=== PATIENT | female | born 1985 | race Caucasian/White ===

== ENCOUNTER 2022-12-06 23:50 | Emergency (ER) | payer MEDICAID ==
[~2022-12-06] VITALS: Ht 152.4 cm; Wt 59.0 kg
[2022-12-07 01:15] VITALS: O2SAT 98
[2022-12-07] MEDS ORDERED: HYDROCODONE/ACETAMINOPHEN 5/325MG TABLET PO STA (02:47)
[2022-12-07 03:45] VITALS: BP 101/69
[2022-12-07] MEDS ORDERED: IBUP-2029 MT (05:40)
[2022-12-07 07:23] VITALS: PULSE 74; RESP 14; TEMP 98
== END 2022-12-07 07:24 | disposition home or self-care (01) ==
LOC: ER 12-07 04:19
DX: R51.9 Headache, unspecified (principal); R07.89 Other chest pain; M54.2 Cervicalgia; M79.601 Pain in right arm; V49.9XXA Car occupant (driver) (passenger) injured in unspecified traffic accident, initial encounter; Y93.89 Activity, other specified; Y92.89 Other specified places as the place of occurrence of the external cause; Y99.8 Other external cause status
CPT/HCPCS: 71046; 72100; 73060; 81025; 99284